=== PATIENT | female | born 1985 | race Caucasian/White ===

== ENCOUNTER 2018-09-12 12:23 | Outpatient (CLI) | payer BC ==
[~2018-09-12] VITALS: Ht 160 cm; Wt 87.8 kg
[2018-09-12] MEDS ORDERED: PREN-93 PO (12:31)
[2018-09-12 12:32] VITALS: BP 120/68; PULSE 72; RESP 18; Ht 160 cm; Wt 87.8 kg
--- NOTE | 2018-09-12 15:33 | TRIAGE ---
OB Triage Datetime Report Generated by CPN: 09/12/2018 15:33 Datetime: 09/12/2018 13:34 Labor Evaluation Frequency: X3 Monitor Mode: External Duration (sec)2399: 40-70 Quality: Mild Pattern: Normal: <= 5 Contractions in 10 Minutes Resting Tone [place]: Relaxed Heart Rate FHR Baseline Rate: 140 Monitor Mode: External US Variability: Moderate 6-25 bpm Accelerations: 15X15 Decelerations: None Category: Category I Datetime: 09/12/2018 13:04 Comments: u/s at bedside Datetime: 09/12/2018 12:47 EGA: 37.0 Datetime: 09/12/2018 12:46 Time of Arrival: 09/12/2018 12:18 Arrived By: Ambulatory Arrived From: Home Chief Complaint: came in with orders for pih panel, 24 hr urine collection, bpp and nst Movement: Present Contractions: Denies/Absent Rupture of Membranes: Denies Vaginal Bleeding: None Vaginal Discharge: Denies Recent Sexual Intercouse: Denies Abdominal Trauma: Not Applicable Patient Complaints: None Additional Patient Complaints: denies Provider Notified: ABUSLEME Initial Plan: nst, call md with results Datetime: 09/12/2018 12:40 Assessment Type: Triage Maternal Assessment Level of Consciousness: Fully Conscious DTR's/Clonus: DTRs 2+; No Clonus Headache: Denies Blurred Vision: No Respiratory Effort: Unlabored; Regular Rhythm; Equal Expansion Breath Sounds, Left: Clear and Equal Breath Sounds, Right: Clear and Equal Nausea/Vomiting: Denies RUQ Epigastric Pain: Denies Lower Extremities Edema: Bilateral Lower Extremities Degree: 1+ Upper Extremities Edema: None Degree: None Facial Edema: None Fall Risk Assessment History of Falling: (0) No Secondary Diagnosis: (0) No Ambulatory Aid: (0) Bedrest/Nurse Assist IV Therapy: (0) No Gait: (0) Normal/Bedrest/Immobile Mental Status: (0) Oriented to Own Ability Fall Score: 0 Fall Risk Score Definition: No Risk: No action required
--- NOTE | 2018-09-12 15:36 | PN ---
Triage Information Date/Time Reason for visit: R/O preeclampsia Weeks of Gestation Patient is a 33-year-old 1 para 0 at 37 weeks of gestation with estimated date of delivery October 03, 2018 Patient had elevated blood pressures in her own [facility]'s office She is dropping off 24-hour urine protein collections today Blood pressures here in triage are within normal limits 120/68 She denies any headache or blurry vision, denies any chest pain or shortness of breath, denies any right upper quadrant pain Reports positive movement, denies uterine contractions and denies vaginal bleeding or leaking fluid /Para 1 para 0 Diabetes: none Hypertention: induced Additional information Patient is dropping off 24-hour urine protein collection Objective Vital Signs Date Temp Pulse Resp B/P (MAP) Pulse Ox O2 O2 Flow FiO2 Time Delivery Rate 09/12/18 97.7 72 18 120/68 Room Air 12:32 (85) Heart Rate: 140's Heart Rate Comments heart rate tracing category 1 Contractions: None Results/Medications Result Diagram: 09/12/18 1230 09/12/18 1230 Results 24 hrs Laboratory Tests Test 09/12/18 12:30 09/12/18 12:34 White Blood Count 8.3 Red Blood Count 4.10 L Hemoglobin 11.8 L Hematocrit 35.3 L Mean Corpuscular Volume 86.1 Mean Corpuscular Hemoglobin 28.8 L Mean Corpuscular Hemoglobin Concent 33.4 Red Cell Distribution Width 13.4 Platelet Count 211 Mean Platelet Volume 11.0 H Immature Granulocytes % 0.800 H Neutrophils % 76.4 Lymphocytes % 16.1 Monocytes % 6.0 Eosinophils % 0.5 Basophils % 0.2 Nucleated Red Blood Cells % 0.0 Immature Granulocytes # 0.070 H Neutrophils # 6.4 Lymphocytes # 1.3 Monocytes # 0.5 Eosinophils # 0.0 Basophils # 0.0 Nucleated Red Blood Cells # 0.0 Urine Random Creatinine 93.35 Urine Collection Duration 24 Urine Total Volume 24 Hours 1530 Urine Creatinine Timed 24 Creatinine Clearance 165.3 H Urine Total Volume (Protein) 1530 Urine Total Protein 24 Hour 153.0 Sodium Level 140 Potassium Level 4.1 Chloride Level 105 Carbon Dioxide Level 24 Anion Gap 11 Blood Urea Nitrogen 9 Creatinine 0.60 Est Glomerular Filtrat Rate mL/min > 60 Glucose Level 100 Uric Acid 5.3 Calcium Level 9.7 Total Bilirubin 0.3 Direct Bilirubin 0.00 Indirect Bilirubin 0.3 Aspartate Amino Transf (AST/SGOT) 16 Alanine Aminotransferase (ALT/SGPT) 12 L Alkaline Phosphatase 141 H Total Protein 7.6 Albumin 4.0 Globulin 3.60 H Albumin/Globulin Ratio 1.11 Urine Color KISHOR Urine Clarity CLOUDY A Urine pH 5.0 Urine Specific [place] 1.031 H Urine Ketones TRACE A Urine Nitrite NEGATIVE Urine Bilirubin NEGATIVE Urine Urobilinogen 1+ H Urine Leukocyte Esterase NEGATIVE Urine Microscopic RBC 7 H Urine Microscopic WBC 4 Urine Squamous Epithelial Cells MANY A Urine Calcium Oxalate Crystals MANY A Urine Bacteria FEW A Urine Mucus MANY A Urine Hemoglobin NEGATIVE Urine Glucose NEGATIVE Urine Total Protein 1+ H Imaging Results PROCEDURE: US OB biophysical profile. CLINICAL INDICATION: decreased movements, hypertension TECHNIQUE: Multiple sonographic images of the pelvis were obtained. The images were reviewed on a PACS workstation. COMPARISON: No prior studies are available for comparison. FINDINGS: There is a single live intrauterine gestation. Cardiac activity is present with 144 beats per minute. There is a vertex presentation. The placenta is posterior. There is no evidence of placental abruption. There is a normal amount of amniotic fluid with an DENNIS = 11.1 cm. Biophysical profile: movement 2/2 tone 2/2. breathing 2/2 DENNIS 2/2 Total 02/18 RPTAT: AA . IMPRESSION: Normal biophysical profile. . .Dean Grimm MD, MD Date Time Electronically viewed and signed by .Dean Grimm MD, MD on 09/12/2018 13:11 .S/ CC: APRIL HERNANDEZ MD [id number] Disposition: Discharge Assessment/Plan Urinalysis suggestive of UTI Prescription for Macrobid was given Urine culture was sent kick count instructions were given Patient to return here in 3 days for repeat NST and BPP Patient to follow-up with her own [facility] in 2-3 days HEIDI VICENTE MD Sep 12, 2018 15:35
== END 2018-09-12 14:05 | disposition home or self-care (01) ==
LOC: OBT 12:23 → L-D 12:23 → OBT 14:05
PROVIDERS: ATTEND Obstetrics & Gynecology
DX: O13.3 Gestational [pregnancy-induced] hypertension without significant proteinuria, third trimester (principal); Z3A.37 37 weeks gestation of pregnancy
CPT/HCPCS: 76818; 80053; 81001; 82565; 82575; 84156; 84560; 85025; 87086; G0463

== ENCOUNTER 2018-09-15 14:38 | Outpatient (CLI) | payer BC ==
[~2018-09-15] VITALS: Ht 160 cm; Wt 88.3 kg
[~2018-09-15 14:38] MED LIST: PREN-93 PO
[2018-09-15 15:17] VITALS: BP 136/72; PULSE 84; RESP 18; Ht 160 cm; Wt 88.3 kg
--- NOTE | 2018-09-15 17:26 | PN ---
Triage Information Date/Time Reason for visit: Uterine contractions Weeks of Gestation 37+ /Para n/a Diabetes: none Objective Vital Signs Date Temp Pulse Resp B/P (MAP) Pulse Ox O2 O2 Flow FiO2 Time Delivery Rate 09/15/18 98.0 84 18 136/72 15:17 (93) Heart Rate: 140's Contractions: >10 Minutes Apart Results/Medications Result Diagram: 09/15/18 1602 09/15/18 1602 Results 24 hrs Laboratory Tests Test 09/15/18 14:50 09/15/18 16:02 Urine Color YELLOW Urine Clarity SLIGHTLY CLOUDY A Urine pH 5.0 Urine Specific [place] 1.021 Urine Ketones TRACE A Urine Nitrite NEGATIVE Urine Bilirubin NEGATIVE Urine Urobilinogen NEGATIVE Urine Leukocyte Esterase NEGATIVE Urine Microscopic RBC 1 Urine Microscopic WBC 2 Urine Squamous Epithelial Cells FEW Urine Calcium Oxalate Crystals MANY A Urine Bacteria FEW A Urine Mucus MODERATE Urine Hemoglobin NEGATIVE Urine Glucose NEGATIVE Urine Total Protein NEGATIVE White Blood Count 8.6 Red Blood Count 3.95 L Hemoglobin 11.6 L Hematocrit 33.6 L Mean Corpuscular Volume 85.1 Mean Corpuscular Hemoglobin 29.4 Mean Corpuscular Hemoglobin Concent 34.5 Red Cell Distribution Width 13.5 Platelet Count 166 # Mean Platelet Volume 11.5 H Immature Granulocytes % 0.600 H Neutrophils % 73.3 Lymphocytes % 18.2 Monocytes % 7.1 Eosinophils % 0.6 Basophils % 0.2 Nucleated Red Blood Cells % 0.0 Immature Granulocytes # 0.050 H Neutrophils # 6.3 Lymphocytes # 1.6 Monocytes # 0.6 Eosinophils # 0.1 Basophils # 0.0 Nucleated Red Blood Cells # 0.0 Prothrombin Time Pending Prothrombin Time Ratio Pending INR International Normalized Ratio Pending Activated Partial Thromboplast Time Pending Fibrinogen 316.0 Sodium Level 137 Potassium Level 3.9 Chloride Level 109 Carbon Dioxide Level 18 L Anion Gap 10 Blood Urea Nitrogen 10 Creatinine 0.51 Est Glomerular Filtrat Rate mL/min > 60 Glucose Level 90 Uric Acid 5.6 Calcium Level 9.2 Total Bilirubin 0.2 Direct Bilirubin 0.00 Indirect Bilirubin 0.2 Aspartate Amino Transf (AST/SGOT) 19 Alanine Aminotransferase (ALT/SGPT) 12 L Alkaline Phosphatase 143 H Total Protein 6.8 Albumin 3.6 Globulin 3.20 Albumin/Globulin Ratio 1.12 Disposition: Discharge Assessment/Plan Bp 04/22 PIH panel reviewed Cx closed Questions answered Follow up with provider Return to hospital in 2 days for NST BPP ABELARDO JUAN M.D. Sep 15, 2018 17:26
--- NOTE | 2018-09-15 18:14 | TRIAGE ---
OB Triage Datetime Report Generated by CPN: 09/15/2018 18:14 Datetime: 09/15/2018 17:19 Stage of : OB Triage Datetime: 09/15/2018 17:03 Labor Evaluation Frequency: 6-7 Monitor Mode: External Duration (sec)2399: 50-70 Quality: Mild Pattern: Normal: <= 5 Contractions in 10 Minutes Resting Tone [place]: Relaxed Heart Rate FHR Baseline Rate: 135 Monitor Mode: External US Variability: Moderate 6-25 bpm Accelerations: 10X10 Decelerations: None Category: Category I Pain Assessment Pain Scale: 0 Pain Presence: None/Denies Pain Type: N/A Pain Goal: 3 Pain Relief Measures: Comfort Measures Datetime: 09/15/2018 15:56 Labor Evaluation Frequency: X1 Monitor Mode: External Quality: Mild Pattern: Normal: <= 5 Contractions in 10 Minutes Resting Tone [place]: Relaxed Heart Rate FHR Baseline Rate: 145 Monitor Mode: External US Variability: Moderate 6-25 bpm Accelerations: 10X10 Decelerations: None Category: Category I Vaginal Exam Dilatation (cms): 0.0 Exam By: S DEANDRA Vaginal Bleeding: None Cervix, Consistency: Soft Cervix, Position: Posterior Presentation 'A': Cephalic Datetime: 09/15/2018 15:35 Stage of : OB Triage Datetime: 09/15/2018 14:46 Stage of : OB Triage Assessment Type: Triage Maternal Assessment Level of Consciousness: Fully Conscious DTR's/Clonus: DTRs 2+; No Clonus Headache: Denies Blurred Vision: No Respiratory Effort: Unlabored; Regular Rhythm; Equal Expansion Breath Sounds, Left: Clear and Equal Breath Sounds, Right: Clear and Equal Nausea/Vomiting: Denies RUQ Epigastric Pain: Denies Facial Edema: None Temperature Route: Axillary Fall Risk Assessment History of Falling: (0) No Secondary Diagnosis: (0) No Ambulatory Aid: (0) Bedrest/Nurse Assist IV Therapy: (0) No Gait: (0) Normal/Bedrest/Immobile Mental Status: (0) Oriented to Own Ability Fall Score: 0 Fall Risk Score Definition: No Risk: No action required Labor Evaluation Frequency: X1 Monitor Mode: External Duration (sec)2399: 50 Quality: Mild Pattern: Normal: <= 5 Contractions in 10 Minutes Resting Tone [place]: Relaxed Heart Rate FHR Baseline Rate: 145 Monitor Mode: External US Variability: Moderate 6-25 bpm Accelerations: None Decelerations: None Category: Category II Pain Assessment Pain Scale: 0 Pain Presence: None/Denies Pain Type: N/A Datetime: 09/15/2018 14:45 Time of Arrival: 09/15/2018 14:30 EGA: 37.3 Arrived By: Ambulatory Arrived From: Home Chief Complaint: FOLLOW UP INCREASED BP , DENIES UC'S, BLEEDING OR LEAKING Movement: Present Contractions: Denies/Absent Rupture of Membranes: Denies Vaginal Bleeding: None Vaginal Discharge: Denies Recent Sexual Intercouse: Denies Abdominal Trauma: Not Applicable Patient Complaints: None Time Provider Notified: 09/15/2018 15:35 Provider Notified: ABUSLEME Initial Plan: MONITOR, U/A, BPP, PIH PANEL Datetime: 09/12/2018 12:47 EGA: 37.0 Datetime: 09/12/2018 12:40 Fall Score: 0 Fall Risk Score Definition: No Risk: No action required
== END 2018-09-15 17:28 | disposition home or self-care (01) ==
LOC: OBT 14:38 → L-D 14:39 → OBT 17:28
PROVIDERS: ATTEND Obstetrics & Gynecology
DX: O62.9 Abnormality of forces of labor, unspecified (principal); Z3A.37 37 weeks gestation of pregnancy
CPT/HCPCS: 76818; 80053; 81001; 84560; 85025; G0463; 81003

== ENCOUNTER 2018-09-27 12:19 | Inpatient (IN) | payer BC, OTHER ==
[~2018-09-27] VITALS: Ht 160 cm; Wt 89.5 kg
[2018-09-27] MEDS ORDERED: LIDOCAINE 1% (MPF) 30 ML INJ INJ PRN (14:30)
[2018-09-27] MEDS ORDERED: OXYTOCIN 30 UNITS/LR 500 ML IV PRN (14:30)
[2018-09-27] MEDS ORDERED: OXYTOCIN 30 UNITS/LR 500 ML IV SCH ×2 (14:30)
[2018-09-27] MEDS ORDERED: CARBOPROST 250 MCG INJ IM PRN (14:30)
[2018-09-27] MEDS ORDERED: MISOPROSTOL 200 MCG TAB PR PRN (14:30)
[2018-09-27] MEDS ORDERED: BUTORPHANOL 2 MG INJ IV PRN (14:30)
[2018-09-27] MEDS ORDERED: METHYLERGONOVINE 0.2 MG INJ IM PRN (14:30)
[2018-09-27] MEDS: LACTATED RINGER'S 1,000 ML IV SCH ×2 (15:09→23:09)
--- NOTE | 2018-09-27 15:15 | HP ---
Date/Time of Note Date/Time of Note DATE: 09/27/18 TIME: 15:12 OB - History Hx of Present Free Text/Dictation 33-year-old 1 para 0 at 39 weeks and 1 day of gestation with estimated date of delivery October 03, 2018 Patient is here to drop off 24-hour urine protein collection secondary to an elevated blood pressure during her office visit Her blood pressure today is 113/65, patient denies of any symptoms of blurred vision or headache, denies any shortness of breath or chest pain, denies any right upper quadrant pain Patient reports positive movement, denies any vaginal bleeding or leaking fluid or any uterine contractions GBS status is negative Estimated Due Date: Oct 03, 2018 : 1 Para: 0 Care: Good Care Past Family/Social History * Past Medical, Surgical, Family and Obstetric Histories reviewed from chart. OB Admission Exam Physical Exam HEENT: WNL Heart: Rhythm Normal Lungs: Clear, Equal Abdomen: WNL Extremities: Normal Reflexes: Normal Cervical Dilatation: None Effacement: 0% Station: -3 Membranes: Intact Heart Rate: 140's Accelerations: Accelerations Present Decelerations: Variable Decelerations Varibility: Moderate Contractions on Admission: None Last 72 hours Lab Results CBC & BMP 09/27/18 13:07 Liver Function Test 09/27/18 13:07 Alanine Aminotransferase (ALT/SGPT) 12 L Albumin 3.6 Alkaline Phosphatase 148 H Aspartate Amino Transf (AST/SGOT) 12 L Direct Bilirubin 0.00 Total Protein 6.8 Urine Results - 72 Hrs Test 09/27/18 12:35 Urine Color YELLOW (YELLOW) Urine Clarity CLOUDY (CLEAR) A Urine pH 6.0 (5.0-9.0) Urine Specific [place] 1.020 (1.003-1.030) Urine Ketones NEGATIVE mg/dL (NEGATIVE) Urine Nitrite NEGATIVE mg/dL (NEGATIVE) Urine Bilirubin NEGATIVE mg/dL (NEGATIVE) Urine Urobilinogen NEGATIVE mg/dL (NEGATIVE) Urine Leukocyte Esterase NEGATIVE Francheska/ul Urine Microscopic RBC 1 /HPF (0-5) Urine Microscopic WBC 1 /HPF (0-5) Urine Squamous Epithelial Cells MANY /HPF (FEW) A Urine Bacteria FEW /HPF (NONE SEEN) A Urine Mucus FEW /HPF (NONE SEEN) A Urine Hemoglobin NEGATIVE mg/dL (NEGATIVE) Urine Random Creatinine 70.80 mg/dl (20-320) Urine Collection Duration 24 hrs Urine Total Volume 24 Hours 1800 ml/24hrs Urine Creatinine Timed 24 hrs Creatinine Clearance 158.0 mls/min (84.0-162.0) Urine Total Volume (Protein) 1800 mls Urine Total Protein 24 Hour 198.0 mg/24hrs (42.0-225.0) Urine Glucose NEGATIVE mg/dL (NEGATIVE) Urine Total Protein NEGATIVE mg/dl (NEGATIVE) PROCEDURE: US OB biophysical profile. CLINICAL INDICATION: decreased movements, hypertension TECHNIQUE: Multiple sonographic images of the pelvis were obtained. The images were reviewed on a PACS workstation. COMPARISON: US PELVIS 09/15/2018 FINDINGS: There is a single live intrauterine gestation. Cardiac activity is present with 135 beats per minute. There is a vertex presentation. The placenta is posterior. There is no evidence of placental abruption. There is a normal amount of amniotic fluid with an DENNIS = 12.0 cm. Biophysical profile: movement 2/2 tone 2/2. breathing 2/2 DENNIS 2/2 Total 02/18 RPTAT: AA . IMPRESSION: Normal biophysical profile. . .Dean Grimm MD, Date Time Electronically viewed and signed by .Dean Grimm MD, on 09/27/2018 13:12 .S/ CC: APRIL HERNANDEZ MD [id number] PROCEDURE: US OB. CLINICAL INDICATION: . Large for gestational age. TECHNIQUE: Multiple sonographic images of the pelvis and uterus were obtained. The images were reviewed on a PACS workstation. COMPARISON: No prior studies are available for comparison. FINDINGS: Cervix: Not visualized. Gestation: Single live intrauterine gestation. Cardiac activity: 141 beats per minute. Presentation: Cephalic. Placenta: Location: Posterior grade II. Appearance: No previa or abruption. Amniotic Fluid: Not evaluated. Measurements: BPD = 9.24 cm, 37 weeks 4 days. HC = 33.27 cm, 38 weeks 0 days. AC = 33.56 cm, 37 weeks 3 days. FL = 7.39 cm, 37 weeks 6 days. Gestational Age: AUA estimated gestational age: 37 weeks 5 days. LMP estimated gestational age: 39 weeks 1 day. AUA estimated date of delivery: 10/13/2018. The EFW = 3260 g, 32 %ile based on LMP age. Structures: Not evaluated. IMPRESSION: 1. Single live intrauterine gestation of 37 weeks 5 days menstrual age by ultrasound dates. 2. The estimated date of delivery is 10/13/2018. RPTAT: QQ .Eliceo Bryant MD, MD Date Time Electronically viewed and signed by .Eliceo Bryant MD, MD on 09/27/2018 16:38 .R/ CC: APRIL HERNANDEZ MD [id number] OB Assessment/Plan Reason for admission: induction of labor (Gestational hypertension and variable deceleration) Plan: Induction (Gestational hypertension and variable deceleration ) Induction Method: per Misoprostol Protocol HEIDI VICENTE MD Sep 27, 2018 15:15
[2018-09-27 16:00] VITALS: BP 134/80; PULSE 63; RESP 18; Ht 160 cm; Wt 89.5 kg
[2018-09-27] MEDS: MISOPROSTOL 50 MCG CAPSULE PO SCH ×2 (16:17→20:17)
[2018-09-28] MEDS: MISOPROSTOL 50 MCG CAPSULE PO SCH ×4 (00:30→12:53)
[2018-09-28] MEDS: LACTATED RINGER'S 1,000 ML IV SCH ×3 (11:16→22:12)
--- NOTE | 2018-09-28 11:26 | PN ---
Date/Time of Note Date/Time of Note DATE: 09/28/18 TIME: 11:21 OB Subjective Subjective Subjective The patient had been admitted last night for induction of labor due to variable decelerations. She came for evaluation for PIH which was normal and the BPP tracing showed variable decelerations for which we kept her for induction since she is past 39 weeks. the cervix is closed about 60% effaced -3 floating station membranes intact. Cephalic presentation The weight was also average She was advised for slow induction. She will be induced with Pitocin after Cytotec. Patient was explained about the reasons for induction and she understands. She is encouraged to walk around take a shower and move around and out of bed while she is not in pain APRIL HERNANDEZ MD Sep 28, 2018 11:26
[2018-09-28] MEDS ORDERED: OXYTOCIN 30 UNITS/LR 500 ML IV SCH (23:00)
[2018-09-29] MEDS: LACTATED RINGER'S 1,000 ML IV SCH ×3 (03:41→13:09)
--- NOTE | 2018-09-29 12:14 | PREAC ---
Date/Time of Note Date/Time of Note DATE: 09/29/18 TIME: 12:14 Anesthesia Eval and Record Evaluation Time Pre-Procedure Interview DATE: 09/29/18 TIME: 12:14 Age 33 Sex female NPO: 8 hrs Preoperative diagnosis labor pain Planned procedure labor epidural Past Medical History Past Medical History: None Surgery & Anesthesia Issues No known issue Meds Anticoagulation: No Beta Steven within 24 hr: No Reason Beta Steven not given: Pt. not on B-Steven Reported Medications Vit No.124/Iron/FA ( Vitamin Tablet) 1 Each Tablet, 1 EACH PO DAILY, TAB 09/12/18 Current Medications Lactated Ringer's 1,000 ml @ 125 mls/hr Q8H IV Last administered on 09/29/18at 11:47; Admin Dose 125 MLS/HR; Start 09/27/18 at 14:12 Butorphanol Tartrate (Stadol) 2 mg Q2H PRN IV .PAIN Last administered on 09/29/18at 07:29; Admin Dose 2 MG; Start 09/27/18 at 14:30 Lidocaine (Xylocaine 1% (Mpf)) 30 ml ONCE PRN INJ .EPISIOTOMY; Start 09/27/18 at 14:30 Oxytocin/Lactated Ringer's 500 ml @ 500 mls/hr ONCE POST IV ; Start 09/27/18 at 14:30 Oxytocin/Lactated Ringer's 500 ml @ 125 mls/hr POST IV ; Start 09/27/18 at 14:30 Oxytocin/Lactated Ringer's 500 ml @ 0 mls/hr ONCE PRN IV .VAGINAL BLEEDING; Start 09/27/18 at 14:30 Methylergonovine Maleate (Methergine) 0.2 mg ONCE PRN IM .VAGINAL BLEEDING; Start 09/27/18 at 14:30 Carboprost Tromethamine (Hemabate) 250 mcg ONCE PRN IM .VAGINAL BLEEDING; Start 09/27/18 at 14:30 Misoprostol (Cytotec) 1,000 mcg ONCE PRN [place] .VAGINAL BLEEDING; Start 09/27/18 at 14:30 Oxytocin/Lactated Ringer's 500 ml @ 0 mls/hr FOR INDUCTION IV Last administered on 09/29/18at 00:59; Admin Dose 1 MLS/HR; Start 09/28/18 at 23:00 Meds reviewed: Yes Allergies Coded Allergies: No Known Allergies (Verified Allergy, Unknown, 09/12/18) Allergies Reviewed: Yes Labs/Studies Labs Reviewed: Reviewed by anesthesiologist Result Diagram: 09/27/18 1307 09/27/18 1307 test: Positive Pre-procedure Exam Last vitals Vital Signs Date Temp Pulse Resp B/P (MAP) Pulse Ox O2 O2 Flow FiO2 Time Delivery Rate 09/27/18 97.8 63 18 134/80 Room Air 16:00 (98) Airway: Adequate mouth opening, Adequate thyromental dist Mallampati: Mallampati III Teeth: Normal Lung: Normal Heart: Normal ASA Physical Status ASA physical status: 2 Emergency: None Planned Anesthetic Neuraxial: Epidural Planned Pain Management Epidural, Parenteral pain med Pre-operative Attestations Prior to commencing anesthesia and surgery, the patient was re-evaluated, there was verification of: *The patient's identity *The results of appropriate recent lab work and preoperative vital signs *The above evaluation not changing prior to induction *Anesthetic plan, risk benefits, alternative and complications discussed with patient/family; questions answered; patient/family understands, accepts and wishes to proceed. CHERISE LOZADA MD Sep 29, 2018 12:14
[2018-09-29] MEDS ORDERED: ONDANSETRON 4 MG INJ IV PRN (12:30)
[2018-09-29] MEDS ORDERED: ZOLPIDEM 5 MG TAB PO PRN (12:30)
[2018-09-29] MEDS ORDERED: DIPHENHYDRAMINE 50 MG INJ IV PRN (12:30)
[2018-09-29] MEDS ORDERED: NALOXONE (0.4 MG/ML) INJ IV PRN (12:30)
[2018-09-29] MEDS ORDERED: KETOROLAC 30 MG INJ IV PRN (12:30)
[2018-09-29] MEDS ORDERED: HYDROmorphONE 0.5 MG/0.5 ML SYG IV PRN ×2 (12:30)
[2018-09-29] MEDS: FENTAnyl 2MCG/ML-ROPIV 0.2% 100 ML BAG EPI SCH ×2 (13:08→22:33)
--- NOTE | 2018-09-29 14:29 | PAC ---
Date/Time of Note Date/Time of Note DATE: 09/29/18 TIME: 14:29 Post-Anesthesia Notes Post-Anesthesia Note Last documented vital signs Vital Signs Date Temp Pulse Resp B/P (MAP) Pulse Ox O2 O2 Flow FiO2 Time Delivery Rate 09/27/18 97.8 63 18 134/80 Room Air 16:00 (98) Activity: WNL Respiratory function: WNL Cardiovascular function: WNL Mental status: Baseline Pain reasonably controlled: Yes Hydration appropriate: Yes Nausea/Vomiting absent: Yes CHERISE LOZADA MD Sep 29, 2018 14:29
--- NOTE | 2018-09-29 21:40 | PN ---
Date/Time of Note Date/Time of Note DATE: 09/29/18 TIME: 21:32 OB Subjective Subjective Subjective Patient has been induced for variable decelerations found in monitoring on [place]. She is slowly progressing but the presentation was high in the pelvis.with low Lance score to start with . now, she is 5 cm dilated, 100 % effacement -3 station. AROM done now with clear fluid. internal monitor applied along with scalp electrode to the baby. We will do amnioinfusion. pitocin working well with contractions every 5 minutes. epidural working well. Patient and questions answered. patient reassured APRIL HERNANDEZ MD Sep 29, 2018 21:40
[2018-09-30] MEDS: LACTATED RINGER'S 1,000 ML IV* SCH ×3 (05:31→21:31)
--- NOTE | 2018-09-30 05:42 | LDN ---
Date/Time of Note Date/Time of Note DATE: 09/30/18 TIME: 05:37 Delivery Summary 33 years old female 1 para 0 that was kept for induction of labor due to variable decelerations observed on the monitor for an NST Patient was at 39 and 2 weeks of After prolonged induction patient had a spontaneous vaginal delivery under epidural anesthesia Baby boy 9 delivered without problems with the help of amnioinfusion and internal monitoring Bilateral paraurethral lacerations were sutured and the were superficial and this was done with 2-0 chromic No bleeding the uterus was revised manually with no retention of placental tissues. Both mother and baby were transferred stable and in good conditions to [facility] Weeks of Gestation 39.2 Placenta Delivered: Spontaneously Meconium: none Laceration repair: Bilateral paraurethral laceration Anesthesia type: Epidural Estimated blood loss: 200 Sponge & Needle done & correct: Yes All needle counts correct: Yes Any foreign bodies felt in the: No Delivery Information Sex Sex: male Apgars 1 Minute: 9 5 Minute: 9 Suctioning Nose & mouth suctioned at chaz: Yes Umbilical Cord Umbilical cord with: 3 Vessels Cord presentations: no nuchal cord Cord Blood was obtained: Yes Mother & Baby Disposition Disposition Mom & Baby to Maternity; Good: Yes APRIL HERNANDEZ MD Sep 30, 2018 05:42
[2018-09-30] MEDS ORDERED: ACETAMINOPHEN 325 MG TAB PO PRN ×2 (06:00)
[2018-09-30] MEDS ORDERED: ONDANSETRON 4 MG TAB PO PRN (06:00)
[2018-09-30] MEDS ORDERED: DIBUCAINE 1% 30 GM OINT TOP PRN (06:00)
[2018-09-30] MEDS ORDERED: DIPHENHYDRAMINE 25 MG CAP PO PRN (06:00)
[2018-09-30] MEDS ORDERED: OXYTOCIN 30 UNITS/LR 500 ML IV PRN (06:00)
[2018-09-30] MEDS ORDERED: HYDROCODONE/APAP (5/325) TAB PO PRN ×2 (06:00)
[2018-09-30] MEDS ORDERED: ONDANSETRON 4 MG INJ IV PRN (06:00)
[2018-09-30] MEDS ORDERED: MAGNESIUM HYDROXIDE 30ML CUP PO PRN (06:00)
[2018-09-30] MEDS ORDERED: SENNA/DOCUSATE NA (8.6MG/50MG) TAB PO PRN (06:00)
[2018-09-30] MEDS ORDERED: MISOPROSTOL 200 MCG TAB PR PRN (06:00)
[2018-09-30] MEDS ORDERED: DIPHENHYDRAMINE 50 MG INJ IV PRN (06:00)
[2018-09-30] MEDS ORDERED: LANOLIN HPA 1 PKT TOP PRN (06:00)
[2018-09-30] MEDS ORDERED: METHYLERGONOVINE 0.2 MG INJ IM PRN (06:00)
[2018-09-30] MEDS ORDERED: CARBOPROST 250 MCG INJ IM PRN (06:00)
[2018-09-30] MEDS: IBUPROFEN 800 MG TAB PO SCH ×4 (06:01→23:30)
[2018-09-30 08:04] VITALS: BP 119/56; PULSE 78; RESP 18
[2018-09-30 08:30] VITALS: BP 125/63; PULSE 65; RESP 18
[2018-09-30 09:00] VITALS: BP 107/56; PULSE 78; RESP 18
[2018-09-30 10:00] VITALS: BP 114/72; PULSE 68; RESP 18
[2018-09-30 16:00] VITALS: BP 116/67; PULSE 73; RESP 18
[2018-09-30 21:00] VITALS: BP 123/65; PULSE 77; RESP 18
[2018-10-01 04:00] VITALS: BP 112/62; PULSE 74; RESP 17
[2018-10-01] MEDS: LACTATED RINGER'S 1,000 ML IV* SCH ×3 (05:25→21:31)
[2018-10-01] MEDS: IBUPROFEN 800 MG TAB PO SCH ×3 (06:02→18:21)
[2018-10-01 08:52] VITALS: BP 107/62; PULSE 85; RESP 17
--- NOTE | 2018-10-01 11:34 | PN ---
Date/Time of Note Date/Time of Note DATE: 10/01/18 TIME: 11:32 Assessment/Plan Lines/Catheters IV Catheter Type (from Nrsg): Peripheral IV Subjective 24 Hr Interval Summary Day 1 vaginal delivery Having no problems or complaints. feels good Breast-feeding Uterus contracted. Lochia normal Constitutional: no complaints Feeding: advancing diet Pain Control: mild Detailed Summary Eyes: no complaints ENT: no complaints Respiratory: no complaints Cardiovascular: no complaints Gastrointestinal: no complaints Genitourinary: no complaints Musculoskeletal: no complaints Skin: no complaints Neurologic: no complaints Endocrine: no complaints Lymphatic: no complaints Psychological: no complaints, nl mood/affect Immunologic: no complaints Exam/Review of Systems Vital Signs Vitals Vital Signs Date Temp Pulse Resp B/P (MAP) Pulse Ox O2 O2 Flow FiO2 Time Delivery Rate 10/01/18 99.1 85 17 107/62 Room Air 08:52 (77) Intake and Output 09/30/18 09/30/18 10/01/18 1515:00 23:00 07:00 IntakeIntake Total 125 ml 450 ml OutputOutput Total 268 ml BalanceBalance -268 ml 125 ml 450 ml Exam Constitutional: alert, oriented, well developed Psych: no complaints, nl mood/affect Head: normocephalic, atraumatic Eyes: nl conjunctiva, EOMI, nl lids, nl sclera ENMT: nl external ears & nose, nl lips & teeth, nl nasal mucosa & septum, mucosa pink and moist Neck: supple, non-tender Respiratory: clear to auscultation, normal air movement Cardiovascular: regular rate and rhythm, nl pulses Gastrointestinal: soft, nl liver, spleen, non-tender Musculoskeletal: nl extremities to inspection, nl gait and stance Extremities: normal pulses 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
--- NOTE | 2018-10-01 11:35 | PD.PPDC ---
THREAD DRESSER Discharge Instruction Condition Ombvs2Do Patient Condition: Hkagp2i Good Diet [id number] Diet: Ybnzd2l Resume Regular Diet Activity/Restrictions [id number] Activity: Fgbzp7h Normal Activity May Shower [id number] Restrictions: Llhpz1l No Exercising No Lifting No Driving No Sexual Activity Nothing in the Vagina No Latexo No Tampons, douche Follow-up Follow-up with Physician: 6, Week/Weeks Return to clinic for [id number] LOAN ANALYST Instructions: Rcnde1i Fever greater than 101 Chills Worsening abdominal pain Excessive Vaginal Bleeding More than 2 pads per hour Unable to tolerate diet [id number] OB Instructions: Lkihd6c Breast Tenderness Depression Blurried Vision Headache [id number] Surgical Instructions: Iibpf8f Incisional Drainage Incisional Redness APRIL HERNANDEZ MD Oct 01, 2018 11:35
[2018-10-01 15:55] VITALS: BP 113/65; PULSE 90; RESP 18
[2018-10-01 20:00] VITALS: BP 121/64; PULSE 86; RESP 18
[2018-10-02] MEDS: IBUPROFEN 800 MG TAB PO SCH ×3 (00:59→12:17)
[2018-10-02 04:00] VITALS: BP_SYST 110; BP_SYST 121; BP_DIAS 60; BP_DIAS 64; PULSE 80; PULSE 88; RESP 18; RESP 20
[2018-10-02] MEDS: LACTATED RINGER'S 1,000 ML IV* SCH ×2 (05:31→09:11)
[2018-10-02 08:30] VITALS: BP 122/69; PULSE 64; RESP 18
--- NOTE | 2018-10-02 08:38 | DS ---
Date/Time of Note Date/Time of Note DATE: 10/02/18 TIME: 08:36 Obstetrical Discharge Record Final Diagnosis Final Diagnosis: Term delivered Vaginal Delivery Obstetrical Delivery: Spontaneous Complications Induction: Yes Condition on Discharge Physical Assessment Voiding: Yes Bowel Movement: Yes Breast: Soft, non-tender, Filling Fundus: Firm Calf Tenderness: No Patient Condition: Good APRIL HERNANDEZ MD Oct 02, 2018 08:38
[2018-10-02] MEDS ORDERED: DIPHTH/TET/ACEL PERTUSS (ADULT) 0.5 ML VIAL IM* ONE (09:00)
[2018-10-02] MEDS ORDERED: MEASLES,MUMPS,RUBELLA VACCINE INJ SC* ONE (09:00)
[2018-10-02] MEDS ORDERED: VARICELLA VACCINE LIVE/PF 1,350 UNIT/0.5 ML ML SC* ONE (09:00)
--- NOTE | 2018-10-05 11:26 | DELSUM ---
Delivery Summary A-C Datetime Report Generated by CPN: 10/05/2018 11:20 DELIVERY PERSONNEL Corrosion Prevention Metal Sprayer: Delgado, Priya MATERNAL INFORMATION Delivery Anesthesia: Epidural Medications in Delivery: LR 500ML PITOCIN 30 UNITS Delivery QBL (ml): 200 Placenta Cultured: No Maternal Complications: None LABOR SUMMARY EDC: 10/03/2018 00:00 No. Babies in Womb: 1 Attempted: No Labor Anesthesia: Epidural LABOR INFORMATION Reason for Induction: Indicated by Test Reason for Induction- Other: DECELERATIONS DURING TRIAGE VISIT Onset of Labor: 09/28/2018 01:00 Complete Dilatation: 09/30/2018 04:06 Cervical Ripening Agents: Cytotec @ (Annotations: 50 MCG PER VAGINA PER DR HERNANDEZ NO.#6) Oxytocin: Induction Group B Beta Strep: Negative Antibiotics # of Doses: 0 Steroids Given: None Reason Steroids Not Administered: Not Applicable MEMBRANES Membranes Rupture Method: Artificial Rupture of Membranes: 09/29/2018 21:21 Length of Rupture (hr): 7.78 Amniotic Fluid Color: Clear Amniotic Fluid Amount: Small Amniotic Fluid Odor: None STAGES OF LABOR Stage 1 hr: 51 Stage 1 min: 6 Stage 2 hr: 1 Stage 2 min: 2 Stage 3 hr: 0 Stage 3 min: 4 Total Time in Labor hr: 52 Total Time in Labor min: 12 VAGINAL DELIVERY Episiotomy: None Laceration Extension: First Degree Laceration Type: Periurethral Laceration Repair: Yes Initial Vag Sponge Count: 10 Final Vag Sponge Count: 10 Initial Vag Sharps Count: 1+1 Final Vag Sharps Count: 2 Sponge Count Correct: Yes; Vaginal Sweep Performed Sharps Count Correct: Yes BABY A INFORMATION Delivery Date/Time: 09/30/2018 05:08 Method of Delivery: Vaginal Born in Route : No : N/A Forceps: N/A Vacuum Extraction: N/A Shoulder Dystocia : N/A SHOULDER DYSTOCIA BABY A Delivery Date/Time: 09/30/2018 05:08 PRESENTATION/POSITION BABY A Presentation: Cephalic Cephalic Presentation: Vertex Breech Presentation: N/A PLACENTA INFORMATION BABY A Placenta Delivery Time : 09/30/2018 05:12 Placenta Method of Delivery: Expressed Placenta Status: Delivered SCORES BABY A Heart Rate 1 min: >100 bpm Resp Effort 1 min: Good Cry Reflex Irritability 1 min: Cough/Sneeze/Pulls Away Muscle Tone 1 min: Active Motion Color 1 min: Body [place], Extremit Blue Resuscitation Effort 1 min: Tactile Stimulation SCORE 1 MIN: 9 Heart Rate 5 min: >100 bpm Resp Effort 5 min: Good Cry Reflex Irritability 5 min: Cough/Sneeze/Pulls Away Muscle Tone 5 min: Active Motion Color 5 min: Body [place], Extremit Blue Resuscitation Effort 5 min: Tactile Stimulation SCORE 5 MIN: 9 INFANT INFORMATION BABY A Gestational Age at Delivery: 39.3 Gestational Status: Full Term- 39- 40.6 Weeks Infant Outcome : Liveborn Infant Condition : Stable Infant Sex: Male IDENTIFICATION/MEDS BABY A ID Band Number: [id number] ID Band Location: Right Leg; Left Arm Sensor Applied: Yes Sensor Number: [id number] Sensor Location : Cord Clamp Vitamin K Given : Not Given Erythromycin Given: Not Given WEIGHT/LENGTH BABY A Birthweight (gm): 3355 Infant Weight (lb): 7 Weight (oz): 6 Infant Length (in): 19.00 Length (cm): 48.26 CORD INFORMATION BABY A No. Cord Vessels: 3 Nuchal Cord : N/A Cord Blood Taken: Yes Banking/Donate Info: NO Infant Suction: Mouth; Nose ASSESSMENT BABY A Infant Complications: Decreased Variability; Multiple Late Decels; Multiple Variable Decels Physical Findings at Delivery: Within Normal Limits Respirations: Appears Normal Immigration Lawyer/ALS Called : Yes Care By: NICU TEAM Transferred To: Remains with Mother
== END 2018-10-02 14:48 | disposition home or self-care (01) | DRG 807 ==
LOC: OBT 12:19 → L-D 12:20 → OBT 13:55 → L-D 13:55 → PP1 09-30 08:30
PROVIDERS: ADMIT Obstetrics & Gynecology; ATTEND Obstetrics & Gynecology
PROC: 10E0XZZ Delivery of Products of Conception, External Approach (ICD-10-PCS; principal; 2018-09-29)
PROC: 0UQMXZZ Repair Vulva, External Approach (ICD-10-PCS; 2018-09-29)
DX: O71.82 Other specified trauma to perineum and vulva (principal); Z37.0 Single live birth; Z3A.39 39 weeks gestation of pregnancy
CPT/HCPCS: 62319; 76815; 76818; 80053; 81001; 82575; 84156; 84560; 85025; 85384; 85610; 85730; 86592; 86850; 86900; 86901; 88307; 90715; 90716; 99464; G0463; J0595; J2405; J2590; J3010; J7120